=== PATIENT | female | born 1970 | race Caucasian/White ===

== ENCOUNTER 2018-07-02 03:37 | Emergency (ER) | payer MEDICAID ==
[~2018-07-02] VITALS: Ht 160 cm; Wt 55.3 kg
[2018-07-02 03:40] VITALS: BP 163/109
== END 2018-07-02 04:17 | disposition left against medical advice (07) ==
LOC: ED 04:15
DX: F90.9 Attention-deficit hyperactivity disorder, unspecified type (principal); Z76.0 Encounter for issue of repeat prescription
CPT/HCPCS: 99283